=== PATIENT | male | born 1930 | race Caucasian/White ===

== ENCOUNTER 2016-12-09 22:57 | Outpatient (CLI) | payer MEDICARE | END 2016-12-09 22:58 | disposition EMS.NT | LOC: EMS 22:57 | PROVIDERS: ATTEND Surgery | DX: Z03.89 Encounter for observation for other suspected diseases and conditions ruled out (principal); W01.0XXA Fall on same level from slipping, tripping and stumbling without subsequent striking against object, initial encounter; Y92.002 Bathroom of unspecified non-institutional (private) residence as the place of occurrence of the external cause ==

== ENCOUNTER 2017-01-21 08:03 | Outpatient (CLI) | payer MEDICARE | END 2017-01-21 08:04 | disposition EMS.NT | DX: Z03.89 Encounter for observation for other suspected diseases and conditions ruled out (principal); W18.39XA Other fall on same level, initial encounter; Y92.009 Unspecified place in unspecified non-institutional (private) residence as the place of occurrence of the external cause ==

== ENCOUNTER 2017-11-05 07:52 | Outpatient (CLI) | payer MEDICARE | END 2017-11-05 07:53 | disposition EMS.NT | LOC: EMS 07:52 | PROVIDERS: ATTEND Surgery | DX: Z03.89 Encounter for observation for other suspected diseases and conditions ruled out (principal); W18.39XA Other fall on same level, initial encounter; Y92.003 Bedroom of unspecified non-institutional (private) residence as the place of occurrence of the external cause ==

== ENCOUNTER 2017-12-04 08:31 | Outpatient (CLI) | payer MEDICARE | END 2017-12-04 08:32 | disposition EMS.NT | LOC: EMS 08:31 | PROVIDERS: ATTEND Surgery | DX: R53.1 Weakness (principal); W06.XXXA Fall from bed, initial encounter; Y92.003 Bedroom of unspecified non-institutional (private) residence as the place of occurrence of the external cause ==

== ENCOUNTER 2018-01-03 23:15 | Outpatient (CLI) | payer MEDICARE | END 2018-01-03 23:16 | disposition EMS.NT | LOC: EMS 23:15 | PROVIDERS: ATTEND Surgery | DX: R53.1 Weakness (principal); W01.0XXA Fall on same level from slipping, tripping and stumbling without subsequent striking against object, initial encounter; Y92.009 Unspecified place in unspecified non-institutional (private) residence as the place of occurrence of the external cause ==

== ENCOUNTER 2018-01-21 07:41 | Outpatient (CLI) | payer MEDICARE | END 2018-01-21 07:42 | disposition EMS.NT | LOC: EMS 07:41 | PROVIDERS: ATTEND Surgery | DX: Z03.89 Encounter for observation for other suspected diseases and conditions ruled out (principal) ==

== ENCOUNTER 2019-01-01 14:49 | Outpatient (CLI) | payer MEDICARE, OTHER | END 2019-01-01 14:50 | disposition short-term general hospital (02) | LOC: EMS 14:49 | PROVIDERS: ATTEND Surgery | DX: I46.9 Cardiac arrest, cause unspecified (principal) | CPT/HCPCS: A0425; A0433 ==